=== PATIENT | male | born 1985 | race Two or more races ===

== ENCOUNTER 2017-01-26 20:25 | Emergency (ER) | payer MEDICAID ==
[~2017-01-26] VITALS: Ht 190.5 cm; Wt 90.7 kg
[~2017-01-26 20:25] MED LIST: DIVA500T53; OXYCARBAZEPINE; QUET400T; SERT-135; TEMA30CA5; TOPI100T29; TRAZEDONE
[2017-01-27] MEDS ORDERED: ACETAMINOPHEN 325 MG TAB PO ONE ×2 (00:44→01:15)
[2017-01-27 03:05] VITALS: BP 118/61
== END 2017-01-27 03:08 | disposition home or self-care (01) ==
LOC: ER 20:25
DX: S00.83XA Contusion of other part of head, initial encounter (principal); Z88.0 Allergy status to penicillin; Z86.73 Personal history of transient ischemic attack (TIA), and cerebral infarction without residual deficits; Y04.2XXA Assault by strike against or bumped into by another person, initial encounter; Y93.89 Activity, other specified; Y99.8 Other external cause status; Y92.89 Other specified places as the place of occurrence of the external cause
CPT/HCPCS: 70450; 70486; 72125

== ENCOUNTER 2017-08-20 16:30 | Emergency (ER) | payer MEDICAID ==
[~2017-08-20] VITALS: Ht 188 cm; Wt 117.9 kg
[2017-08-20 16:35] VITALS: BP 124/72
[2017-08-20] MEDS ORDERED: cefTRIAXone SOD 1,000 MG VL IM ONE (19:15)
[2017-08-20] MEDS ORDERED: LIDOCAINE 1% (LOCAL ANESTH.) PF 5ml SDV IJ ONE (19:15)
[2017-08-20] MEDS ORDERED: LIDOCAINE 1% HCL (LOCAL ANESTH.) INJ 20ML MDV ONE (19:23)
[2017-08-20] MEDS ORDERED: TETANUS-DIPTH-ACEL PERTUSSIS 0.5ML SYRG IM ONE (19:30)
== END 2017-08-20 20:09 | disposition home or self-care (01) ==
LOC: ER 16:30
DX: S01.81XA Laceration without foreign body of other part of head, initial encounter (principal); S01.01XA Laceration without foreign body of scalp, initial encounter; Z88.0 Allergy status to penicillin; Z86.73 Personal history of transient ischemic attack (TIA), and cerebral infarction without residual deficits; W45.8XXA Other foreign body or object entering through skin, initial encounter; Y93.89 Activity, other specified; Y92.89 Other specified places as the place of occurrence of the external cause; Y99.8 Other external cause status
CPT/HCPCS: 12001; 12013; 90471; 90715; 96372; 99284; J0696; J2001

== ENCOUNTER 2018-01-04 15:00 | Emergency (ER) | payer MEDICARE, MEDICAID ==
[~2018-01-04] VITALS: Ht 188 cm; Wt 108.9 kg
[2018-01-04 15:14] VITALS: BP 119/78
== END 2018-01-04 17:48 | disposition home or self-care (01) ==
LOC: ER 15:05
DX: R51 Headache (principal); Z88.0 Allergy status to penicillin; Z79.899 Other long term (current) drug therapy
CPT/HCPCS: 70450

== ENCOUNTER 2019-03-01 22:19 | Emergency (ER) | payer MEDICARE, MEDICAID ==
[~2019-03-01] VITALS: Ht 188 cm; Wt 113.4 kg
[~2019-03-01 22:19] MED LIST changes: -SERT-135; +SERT100T
[2019-03-01 22:30] VITALS: BP 134/76
[2019-03-01 23:57] LABS: Basophils # (auto) 0 uL; Basophils % (auto) 0.4 % (0.0-2.0); Eosinophils # (auto) 0 uL; Eosinophils % (auto) 0.2 % (0.0-7.0); Hematocrit 42.2 % (41.0-53.0); Hemoglobin 14.7 g/dL (13.5-17.5); Lymphocytes # (auto) 0.6 uL; Lymphocytes % (auto) 6.7 % (10.0-50.0); Mean Corpuscular Hemoglobin 32.3 pg (28.0-32.0); Mean Corpuscular Hgb Conc. 34.8 g/dL (32.0-36.0); Mean Corpuscular Volume 92.8 fL (80.0-100.0); Monocytes # (auto) 0.3 uL; Monocytes % (auto) 3.4 % (0.0-12.0); Neutrophils # (auto) 7.4 uL; Neutrophils % (auto) 89.3 % (37.0-80.0); Platelet Count (auto) 145 10^3/uL (140-450); Red Blood Cells 4.54 10^6/uL (4.5-5.90); Red Cell Distribution Width 14.5 % (11.8-14.3); White Blood Cell 8.3 10^3/uL (4.4-10.8)
[2019-03-02 00:18] LABS: Albumin 4.6 g/dL (3.4-5.0); BUN/Creatinine Ratio 13.9; Calcium 8.9 mg/dL (8.5-10.1); Potassium 3.2 mmol/L (3.5-5.1)
[2019-03-02 00:21] LABS: Bilirubin, Total 0.8 mg/dL (0.2-1.0); Total Protein 8.4 g/dL (6.4-8.2)
== END 2019-03-02 00:19 | disposition left against medical advice (07) ==
LOC: EDBD 22:19 → ER 22:23
DX: R19.7 Diarrhea, unspecified (principal); Z53.21 Procedure and treatment not carried out due to patient leaving prior to being seen by health care provider
CPT/HCPCS: 36415; 80053; 82150; 83690; 85025

== ENCOUNTER 2019-03-03 10:41 | Emergency (ER) | payer MEDICARE, MEDICAID ==
[~2019-03-03] VITALS: Ht 188 cm; Wt 90.7 kg
[2019-03-03 11:09] VITALS: BP 129/89
[2019-03-03] MEDS ORDERED: SODIUM CHLORIDE 0.9% 1,000 ML IV ONE (11:39)
[2019-03-03] MEDS ORDERED: CARISOPRODOL 350 MG TAB PO ONE (11:45)
[2019-03-03] MEDS ORDERED: KETOROLAC TROMETH 30 MG/ML 1ML VIAL IV ONE (11:45)
[2019-03-03 13:23] LABS: Basophils # (auto) 0 uL; Basophils % (auto) 0.2 % (0.0-2.0); Eosinophils # (auto) 0 uL; Hematocrit 40.7 % (41.0-53.0); Hemoglobin 13.9 g/dL (13.5-17.5); Lymphocytes # (auto) 0.8 uL; Lymphocytes % (auto) 10.8 % (10.0-50.0); Mean Corpuscular Hemoglobin 32.1 pg (28.0-32.0); Mean Corpuscular Hgb Conc. 34.1 g/dL (32.0-36.0); Mean Corpuscular Volume 94.1 fL (80.0-100.0); Monocytes # (auto) 0.6 uL; Monocytes % (auto) 8.3 % (0.0-12.0); Neutrophils # (auto) 5.7 uL; Neutrophils % (auto) 80.7 % (37.0-80.0); Platelet Count (auto) 146 10^3/uL (140-450); Red Blood Cells 4.32 10^6/uL (4.5-5.90); Red Cell Distribution Width 14.4 % (11.8-14.3)
[2019-03-03 13:33] LABS: Calcium 8.7 mg/dL (8.5-10.1); Magnesium 2.5 mg/dL (1.6-2.6)
[2019-03-03 13:36] LABS: BUN/Creatinine Ratio 15.3; Bilirubin, Total 0.4 mg/dL (0.2-1.0); Total Protein 7.6 g/dL (6.4-8.2)
== END 2019-03-03 14:17 | disposition home or self-care (01) ==
LOC: ER 10:41
DX: R25.2 Cramp and spasm (principal); F17.210 Nicotine dependence, cigarettes, uncomplicated; F12.10 Cannabis abuse, uncomplicated; Z88.0 Allergy status to penicillin; Z79.899 Other long term (current) drug therapy
CPT/HCPCS: 36415; 80053; 83735; 85025; 96374; 99283; J1885; J7030

== ENCOUNTER 2020-09-28 02:44 | Emergency (ER) | payer MEDICARE, MEDICAID ==
[~2020-09-28] VITALS: Ht 180.3 cm; Wt 79.4 kg
[~2020-09-28 02:44] MED LIST changes: +DIVA500T2; -DIVA500T53
[2020-09-28 03:04] VITALS: BP 129/70
== END 2020-09-28 06:05 | disposition left against medical advice (07) ==
LOC: EDBD 02:44 → ER 02:47
DX: T67.5XXA Heat exhaustion, unspecified, initial encounter (principal); Z53.21 Procedure and treatment not carried out due to patient leaving prior to being seen by health care provider; X30.XXXA Exposure to excessive natural heat, initial encounter; Y93.89 Activity, other specified; Y92.89 Other specified places as the place of occurrence of the external cause; Y99.8 Other external cause status

== ENCOUNTER 2021-05-14 21:23 | Inpatient (IN) | payer MEDICARE, MEDICAID ==
[~2021-05-14] VITALS: Ht 188 cm; Wt 64.0 kg
[2021-05-14] MEDS ORDERED: IOHEXOL 300 MG/ML 100ML BOTTLE IJ ONE (23:57)
[2021-05-15] VITALS (7 sets, daily range): BP systolic 88–102; BP diastolic 51–67
[2021-05-15] MEDS ORDERED: HYDROmorphone HCL 2 MG/ML VL IV ONE
[2021-05-15 03:33] LABS: Albumin 2.5 g/dL (3.4-5.0); BUN/Creatinine Ratio 15.4; Calcium 8.3 mg/dL (8.5-10.1); Potassium 3.9 mmol/L (3.5-5.1)
[2021-05-15 03:36] LABS: Bilirubin, Total 0.4 mg/dL (0.2-1.0); Total Protein 5.8 g/dL (6.4-8.2)
[2021-05-15 03:42] LABS: Basophils # (auto) 0 10 ^3/uL (0-0.2); Basophils % (auto) 0.3 % (0.0-2.0); Eosinophils # (auto) 0 10 ^3/uL (0-0.8); Eosinophils % (auto) 0.2 % (0.0-7.0); Hematocrit 34.5 % (41.0-53.0); Hemoglobin 11.6 g/dL (13.5-17.5); Lymphocytes # (auto) 2.2 10 ^3/uL (0.4-5.4); Lymphocytes % (auto) 22.9 % (10.0-50.0); Mean Corpuscular Hemoglobin 31.6 pg (28.0-32.0); Mean Corpuscular Hgb Conc. 33.6 g/dL (32.0-36.0); Monocytes # (auto) 0.6 10 ^3/uL (0-1.3); Monocytes % (auto) 6.3 % (0.0-12.0); Neutrophils # (auto) 6.9 10 ^3/uL (1.6-8.6); Neutrophils % (auto) 70.3 % (37.0-80.0); Red Blood Cells 3.67 10^6/uL (4.5-5.90); Red Cell Distribution Width 15.1 % (11.8-14.3); White Blood Cell 9.8 10^3/uL (4.4-10.8)
[2021-05-15] MEDS ORDERED: CLINDAMYCIN 300MG IV 50 ML IV ONE (03:45)
[2021-05-15] MEDS ORDERED: HYDROmorphone HCL 2 MG/ML VL IV PRN (03:45)
[2021-05-15] MEDS ORDERED: ACETAMINOPHEN 325 MG TAB PO PRN ×2 (03:45→06:00)
[2021-05-15] MEDS ORDERED: HYDROcodone-ACET 5/325MG TAB PO PRN (03:45)
[2021-05-15] MEDS: SODIUM CHLORIDE 0.9% 1,000 ML IV SCH ×2 (03:45→04:49)
[2021-05-15] MEDS ORDERED: DOCUSATE SOD 100 MG CAP PO PRN ×2 (03:45→06:00)
[2021-05-15] MEDS ORDERED: ONDANSETRON HCL 4 MG/2 ML VIAL IV PRN (03:45)
[2021-05-15] MEDS ORDERED: MORPHINE SULFATE INJECTION 2 MG/ML SYRG IV PRN ×2 (04:45→06:00)
[2021-05-15] MEDS ORDERED: NITROGLYCERIN 0.4 MG SL TAB SL PRN ×2 (04:45→06:00)
[2021-05-15] MEDS ORDERED: SODIUM CHLORIDE 0.9% 1,000 ML IV SCH (06:00)
[2021-05-15] MEDS ORDERED: CLINDAMYCIN 600MG IV 50 ML IV SCH (06:00)
[2021-05-15] MEDS: HYDROmorphone HCL 2 MG/ML VL IV PRN ×4 (06:30→21:42)
[2021-05-15] MEDS: ONDANSETRON HCL 4 MG/2 ML VIAL IV PRN ×3 (06:31→17:25)
[2021-05-15] MEDS: CLINDAMYCIN 600MG IV 50 ML IV SCH ×3 (06:32→22:18)
[2021-05-15] MEDS ORDERED: ALBUMIN 25% 50 ML IV ONE (08:00)
[2021-05-15] MEDS: ACCU-CHEK COMFORT CURVE STRIP VI SCH ×4 (08:00→23:39)
[2021-05-15] MEDS ORDERED: DEXTROSE (50%) 50ML SYRG IV PRN (08:00)
[2021-05-15] MEDS ORDERED: InsuLIN REG 1unit/0.01ml Soln (100units/ml) SC SCH (08:00)
[2021-05-15] MEDS ORDERED: FAMOTIDINE (10MG/ML) 2ML VL IV SCH (10:00)
[2021-05-15] MEDS ORDERED: ENOXAPARIN SOD 40 MG/0.4 ML SYRINGE SC SCH (10:00)
[2021-05-15] MEDS: FAMOTIDINE (10MG/ML) 2ML VL IV SCH (10:00)
[2021-05-15] MEDS ORDERED: ASCORBIC ACID 500 MG TAB PO SCH (10:00)
[2021-05-15] MEDS ORDERED: ZINC SULFATE 220mg CAP or TAB PO SCH (10:00)
[2021-05-15] MEDS ORDERED: TOPIRAMATE 100 MG TAB PO SCH (10:00)
[2021-05-15] MEDS ORDERED: MULTIPLE VITAMIN TAB PO SCH (10:00)
[2021-05-15] MEDS ORDERED: INSULIN LANTUS (GLARGINE) 1 /0.01ml (100units/ml) SC ONE (11:15)
[2021-05-15] MEDS: ZINC SULFATE 220mg CAP or TAB PO SCH (11:15)
[2021-05-15] MEDS: MULTIPLE VITAMIN TAB PO SCH (11:15)
[2021-05-15] MEDS: ENOXAPARIN SOD 40 MG/0.4 ML SYRINGE SC SCH (11:16)
[2021-05-15] MEDS: ASCORBIC ACID 500 MG TAB PO SCH ×2 (11:16→22:19)
[2021-05-15] MEDS: TOPIRAMATE 100 MG TAB PO SCH ×2 (11:17→22:19)
[2021-05-15] MEDS: InsuLIN REG 1unit/0.01ml Soln (100units/ml) SC SCH ×3 (11:30→23:28)
[2021-05-15] MEDS: INSULIN LANTUS (GLARGINE) 1 /0.01ml (100units/ml) SC SCH (23:26)
[2021-05-16 05:00] VITALS: BP 95/59
[2021-05-16] MEDS: HYDROcodone-ACET 5/325MG TAB PO PRN ×4 (05:09→21:38)
[2021-05-16] MEDS: ONDANSETRON HCL 4 MG/2 ML VIAL IV PRN ×4 (05:10→19:10)
[2021-05-16 05:30] LABS: Basophils # (auto) 0 10 ^3/uL (0-0.2); Basophils % (auto) 0.3 % (0.0-2.0); Eosinophils # (auto) 0 10 ^3/uL (0-0.8); Eosinophils % (auto) 0.3 % (0.0-7.0); Hematocrit 34.7 % (41.0-53.0); Hemoglobin 11.9 g/dL (13.5-17.5); Lymphocytes # (auto) 2.6 10 ^3/uL (0.4-5.4); Lymphocytes % (auto) 32.5 % (10.0-50.0); Mean Corpuscular Hemoglobin 32.1 pg (28.0-32.0); Mean Corpuscular Hgb Conc. 34.3 g/dL (32.0-36.0); Mean Corpuscular Volume 93.5 fL (80.0-100.0); Monocytes # (auto) 0.5 10 ^3/uL (0-1.3); Monocytes % (auto) 6.8 % (0.0-12.0); Neutrophils # (auto) 4.8 10 ^3/uL (1.6-8.6); Neutrophils % (auto) 60.1 % (37.0-80.0); Red Blood Cells 3.72 10^6/uL (4.5-5.90); Red Cell Distribution Width 15.1 % (11.8-14.3)
[2021-05-16 05:56] LABS: Potassium 3.5 mmol/L (3.5-5.1)
[2021-05-16 06:04] LABS: BUN/Creatinine Ratio 19.4; Calcium 8.6 mg/dL (8.5-10.1); Magnesium 2.4 mg/dL (1.6-2.6)
[2021-05-16] MEDS: CLINDAMYCIN 600MG IV 50 ML IV SCH ×3 (06:12→21:38)
[2021-05-16 06:13] LABS: INR 1.03 (0.9-1.15); Partial Thromboplastin Time 32.5 sec (23.6-33.0)
[2021-05-16] MEDS: InsuLIN REG 1unit/0.01ml Soln (100units/ml) SC SCH ×3 (07:00→17:00)
[2021-05-16] MEDS: ACCU-CHEK COMFORT CURVE STRIP VI SCH ×3 (07:01→17:00)
[2021-05-16] MEDS: INSULIN LANTUS (GLARGINE) 1 /0.01ml (100units/ml) SC SCH (07:06)
[2021-05-16 07:33] LABS: Urine WBC None Seen /hpf (0 - 3)
[2021-05-16 08:11] LABS: Urine Amorphous Crystal FEW /hpf (None Seen); Urine Bacteria FEW /hpf (None Seen); Urine Blood Negative /uL (Negative); Urine Mucus FEW (None Seen); Urine Specific Gravity 1.015 (1.001-1.035)
[2021-05-16 09:00] VITALS: BP 107/65
[2021-05-16] MEDS: MULTIPLE VITAMIN TAB PO SCH (10:00)
[2021-05-16] MEDS: FAMOTIDINE (10MG/ML) 2ML VL IV SCH (10:00)
[2021-05-16] MEDS: ASCORBIC ACID 500 MG TAB PO SCH ×2 (10:00→21:37)
[2021-05-16] MEDS: ZINC SULFATE 220mg CAP or TAB PO SCH (10:00)
[2021-05-16] MEDS: TOPIRAMATE 100 MG TAB PO SCH ×2 (10:00→21:37)
[2021-05-16] MEDS: ENOXAPARIN SOD 40 MG/0.4 ML SYRINGE SC SCH (10:00)
[2021-05-16] MEDS: HYDROmorphone HCL 2 MG/ML VL IV PRN ×3 (10:40→19:10)
[2021-05-16] MEDS ORDERED: BUPIVACAINE W/ EPINEPH 0.5% MPF 30ML VIAL IJ ONE (12:00)
[2021-05-16] MEDS ORDERED: LIDOCAINE 1% HCL (LOCAL ANESTH.) INJ 20ML MDV ID ONE (12:00)
[2021-05-16] MEDS ORDERED: BUPIVACAINE 0.5% INJ 50ML VIAL IJ ONE (12:30)
[2021-05-17] MEDS: InsuLIN REG 1unit/0.01ml Soln (100units/ml) SC SCH ×4 (00:55→17:05)
[2021-05-17] MEDS: INSULIN LANTUS (GLARGINE) 1 /0.01ml (100units/ml) SC SCH ×2 (00:57→07:35)
[2021-05-17] MEDS: ACCU-CHEK COMFORT CURVE STRIP VI SCH ×4 (01:03→17:03)
[2021-05-17] MEDS: CLINDAMYCIN 600MG IV 50 ML IV SCH ×2 (06:00→13:30)
[2021-05-17 08:00] VITALS: BP 89/48
[2021-05-17] MEDS: FAMOTIDINE (10MG/ML) 2ML VL IV SCH (10:47)
[2021-05-17] MEDS: TOPIRAMATE 100 MG TAB PO SCH (10:48)
[2021-05-17] MEDS: MULTIPLE VITAMIN TAB PO SCH (10:48)
[2021-05-17] MEDS: ENOXAPARIN SOD 40 MG/0.4 ML SYRINGE SC SCH (10:48)
[2021-05-17] MEDS: ASCORBIC ACID 500 MG TAB PO SCH (10:48)
[2021-05-17] MEDS: ZINC SULFATE 220mg CAP or TAB PO SCH (10:48)
[2021-05-17 13:00] VITALS: BP 89/48
[2021-05-17] MEDS ORDERED: BLOO1KIT60 XX (14:11)
[2021-05-17] MEDS ORDERED: INSLANTI SC (14:11)
[2021-05-17] MEDS ORDERED: CLIN300C2 PO (14:11)
[2021-05-17] MEDS ORDERED: INSU1MIS44 XX (14:11)
[2021-05-17] MEDS ORDERED: GLUC-149 VI (14:11)
[2021-05-17 16:50] VITALS: BP 99/59
== END 2021-05-17 18:40 | disposition home health service (06) | DRG 638 ==
LOC: ER 21:23 → OVERFLOW 05-15 04:39 → ER 05-15 05:14 → WEST WING 05-15 05:18
PROVIDERS: ADMIT Nurse Practitioner Family; ATTEND Internal Medicine Geriatric Medicine
PROC: 0H98XZZ Drainage of Buttock Skin, External Approach (ICD-10-PCS; principal; 2021-05-16)
DX: E11.65 Type 2 diabetes mellitus with hyperglycemia (principal); L02.31 Cutaneous abscess of buttock; G82.20 Paraplegia, unspecified; K86.2 Cyst of pancreas; G81.91 Hemiplegia, unspecified affecting right dominant side; E44.1 Mild protein-calorie malnutrition; E88.09 Other disorders of plasma-protein metabolism, not elsewhere classified; Z20.822 Contact with and (suspected) exposure to COVID-19; F17.210 Nicotine dependence, cigarettes, uncomplicated; L89.90 Pressure ulcer of unspecified site, unspecified stage; G40.909 Epilepsy, unspecified, not intractable, without status epilepticus; Z99.3 Dependence on wheelchair; Z86.73 Personal history of transient ischemic attack (TIA), and cerebral infarction without residual deficits; Z88.0 Allergy status to penicillin; Z87.19 Personal history of other diseases of the digestive system
CPT/HCPCS: 36415; 80048; 80053; 80061; 81001; 82962; 83036; 83735; 85025; 85610; 85730; 87081; 87086; 87426; 96365; 96375; G0378; J1815; J2001; J2405; J3490

== ENCOUNTER 2021-05-30 19:55 | Emergency (ER) | payer MEDICARE, MEDICAID ==
[~2021-05-30] VITALS: Ht 167.6 cm; Wt 81.6 kg
[~2021-05-30 19:55] MED LIST changes: +BLOO1KIT60 XX; +CLIN300C2 PO; +GLUC-149 VI; +INSLANTI SC; +INSU1MIS44 XX
[2021-05-30] MEDS ORDERED: ACETAMINOPHEN 325 MG TAB PO ONE (20:30)
[2021-05-30] MEDS ORDERED: IOHEXOL 300 MG/ML 100ML BOTTLE IJ ONE (20:53)
[2021-05-30 21:13] LABS: Basophils # (auto) 0 10 ^3/uL (0-0.2); Basophils % (auto) 0.3 % (0.0-2.0); Eosinophils # (auto) 0 10 ^3/uL (0-0.8); Eosinophils % (auto) 0.2 % (0.0-7.0); Hematocrit 39.5 % (41.0-53.0); Hemoglobin 13.3 g/dL (13.5-17.5); Lymphocytes # (auto) 1.7 10 ^3/uL (0.4-5.4); Lymphocytes % (auto) 12.6 % (10.0-50.0); Mean Corpuscular Hemoglobin 31.8 pg (28.0-32.0); Mean Corpuscular Hgb Conc. 33.8 g/dL (32.0-36.0); Mean Corpuscular Volume 94.3 fL (80.0-100.0); Monocytes # (auto) 0.7 10 ^3/uL (0-1.3); Monocytes % (auto) 5.2 % (0.0-12.0); Neutrophils # (auto) 11.3 10 ^3/uL (1.6-8.6); Neutrophils % (auto) 81.7 % (37.0-80.0); Red Blood Cells 4.19 10^6/uL (4.5-5.90); Red Cell Distribution Width 14.8 % (11.8-14.3); White Blood Cell 13.8 10^3/uL (4.4-10.8)
[2021-05-30] MEDS: HYDROmorphone HCL 2 MG/ML VL IV ONE ×2 (21:15→21:49)
[2021-05-30 21:29] LABS: Albumin 3.3 g/dL (3.4-5.0); BUN/Creatinine Ratio 15.8; Calcium 8.6 mg/dL (8.5-10.1); INR 1.02 (0.9-1.15)
[2021-05-30 21:31] LABS: Bilirubin, Total 0.4 mg/dL (0.2-1.0); Total Protein 6.7 g/dL (6.4-8.2)
[2021-05-31] MEDS ORDERED: ALUM & MAG HYDROX-SIMETH LIQ(MAALOX) 30 ML PO ONE (00:30)
[2021-05-31] MEDS ORDERED: ONDANSETRON HCL 4 MG/2 ML VIAL IV ONE (01:30)
[2021-05-31] MEDS ORDERED: HYDROmorphone HCL 2 MG/ML VL IV ONE (01:30)
[2021-05-31 03:29] LABS: Urine Blood Negative /uL (Negative)
[2021-05-31 03:30] LABS: Urine Bacteria NONE SEEN /hpf (None Seen); Urine Specific Gravity > 1.050 (1.001-1.035); Urine WBC 1 /hpf (0 - 3)
[2021-05-31] MEDS ORDERED: SUCR1TAB22 OR (03:57)
[2021-05-31] MEDS ORDERED: FAMO20TA10 PO (03:57)
[2021-05-31 04:12] VITALS: BP 127/94
== END 2021-05-31 04:17 | disposition home or self-care (01) ==
LOC: EDBD 19:55 → ER 19:59
DX: R10.9 Unspecified abdominal pain (principal); F17.210 Nicotine dependence, cigarettes, uncomplicated; Z86.73 Personal history of transient ischemic attack (TIA), and cerebral infarction without residual deficits; Z79.2 Long term (current) use of antibiotics; Z79.899 Other long term (current) drug therapy
CPT/HCPCS: 36415; 74177; 80053; 81001; 85025; 85610; 96374; 96375; 96376; 99285; J1170; J2405; Q9967

== ENCOUNTER 2021-10-07 20:46 | Emergency (ER) | payer MEDICARE, MEDICAID ==
[~2021-10-07 20:46] MED LIST changes: +FAMO20TA10 PO; +SUCR1TAB22 OR
== END 2021-10-07 23:00 | disposition left against medical advice (07) ==
LOC: ER 20:46
DX: R10.2 Pelvic and perineal pain (principal); Z53.21 Procedure and treatment not carried out due to patient leaving prior to being seen by health care provider

== ENCOUNTER 2021-10-08 15:21 | Inpatient (IN) | payer MEDICARE, MEDICAID ==
[~2021-10-08] VITALS: Ht 167.6 cm; Wt 63.5 kg
[2021-10-08] MEDS ORDERED: MORPHINE SULFATE 4 MG/ML SYR/VIAL IV ONE (15:45)
[2021-10-08] MEDS ORDERED: PROCHLORPERAZINE EDISYLATE 5 MG/ML 2ML VIAL IV ONE (15:45)
[2021-10-08] MEDS ORDERED: PANTOPRAZOLE 40 MG/10 ML VIAL INJ IV ONE (15:45)
[2021-10-08] MEDS ORDERED: SODIUM CHLORIDE 0.9% 1,000 ML IVB ONE (15:45)
[2021-10-08 16:41] LABS: Basophils # (auto) 0 10 ^3/uL (0-0.2); Basophils % (auto) 0.2 % (0.0-2.0); Eosinophils # (auto) 0 10 ^3/uL (0-0.8); Hemoglobin 11.2 g/dL (13.5-17.5); Monocytes # (auto) 1.4 10 ^3/uL (0-1.3)
[2021-10-08 16:44] LABS: Eosinophils % (auto) 0.1 % (0.0-7.0); Hematocrit 34.5 % (41.0-53.0); Lymphocytes # (auto) 1.9 10 ^3/uL (0.4-5.4); Lymphocytes % (auto) 14.4 % (10.0-50.0); Mean Corpuscular Hemoglobin 27.6 pg (28.0-32.0); Mean Corpuscular Hgb Conc. 32.5 g/dL (32.0-36.0); Monocytes % (auto) 11.1 % (0.0-12.0); Neutrophils # (auto) 9.6 10 ^3/uL (1.6-8.6); Neutrophils % (auto) 74.2 % (37.0-80.0); Nucleated Red Blood Cells % 0.1 %; Red Blood Cells 4.06 10^6/uL (4.5-5.90); Red Cell Distribution Width 16.1 % (11.8-14.3); White Blood Cell 12.9 10^3/uL (4.4-10.8)
[2021-10-08 16:52] LABS: Albumin 2.3 g/dL (3.4-5.0); Calcium 8.7 mg/dL (8.5-10.1); Potassium 3.7 mmol/L (3.5-5.1)
[2021-10-08 17:05] LABS: Bilirubin, Total 0.4 mg/dL (0.2-1.0); Total Protein 7.3 g/dL (6.4-8.2)
[2021-10-09] MEDS ORDERED: MORPHINE SULFATE INJ 2 MG/ml SYRG IV PRN ×2 (02:15→03:30)
[2021-10-09] MEDS ORDERED: ONDANSETRON HCL 4 MG/2 ML VIAL IV PRN (02:15)
[2021-10-09] MEDS ORDERED: DEXTROSE (50%) 50ML SYRG IV PRN (02:15)
[2021-10-09] MEDS ORDERED: SODIUM CHLORIDE 0.9% 1,000 ML IV SCH (02:15)
[2021-10-09] MEDS ORDERED: ACETAMINOPHEN 325 MG TAB PO PRN (02:15)
[2021-10-09] MEDS ORDERED: NITROGLYCERIN 0.4 MG SL TAB SL PRN (03:30)
[2021-10-09] MEDS: metroNIDAZOLE 500MG/100ML 100 ML IV SCH ×3 (05:30→19:46)
[2021-10-09] MEDS: InsuLIN REG 1unit/0.01ml Soln (100units/ml) SC SCH ×4 (07:00→22:00)
[2021-10-09] MEDS: ACCU-CHEK COMFORT CURVE STRIP VI SCH ×4 (07:29→22:00)
[2021-10-09 08:03] LABS: Basophils # (auto) 0 10 ^3/uL (0-0.2); Eosinophils # (auto) 0 10 ^3/uL (0-0.8); Eosinophils % (auto) 0.1 % (0.0-7.0); Hemoglobin 10.2 g/dL (13.5-17.5); Monocytes # (auto) 1.4 10 ^3/uL (0-1.3)
[2021-10-09 08:05] LABS: Basophils % (auto) 0.2 % (0.0-2.0); Hematocrit 31.4 % (41.0-53.0); Lymphocytes # (auto) 1.8 10 ^3/uL (0.4-5.4); Lymphocytes % (auto) 13.3 % (10.0-50.0); Mean Corpuscular Hemoglobin 27.6 pg (28.0-32.0); Mean Corpuscular Hgb Conc. 32.4 g/dL (32.0-36.0); Mean Corpuscular Volume 85.1 fL (80.0-100.0); Monocytes % (auto) 10.3 % (0.0-12.0); Neutrophils # (auto) 10.6 10 ^3/uL (1.6-8.6); Neutrophils % (auto) 76.1 % (37.0-80.0); Red Blood Cells 3.69 10^6/uL (4.5-5.90); Red Cell Distribution Width 16.2 % (11.8-14.3); White Blood Cell 13.9 10^3/uL (4.4-10.8)
[2021-10-09 08:25] LABS: Potassium 3.7 mmol/L (3.5-5.1)
[2021-10-09 08:30] LABS: Bilirubin, Total 0.5 mg/dL (0.2-1.0); Calcium 8.3 mg/dL (8.5-10.1); Total Protein 6.4 g/dL (6.4-8.2)
[2021-10-09] MEDS: HYDROcodone-ACET 5/325MG TAB PO PRN ×2 (09:10→18:39)
[2021-10-09] MEDS: PANTOPRAZOLE 40 MG/10 ML VIAL INJ IV SCH (09:45)
[2021-10-09] MEDS: TOPIRAMATE 100 MG TAB PO SCH ×2 (09:45→23:35)
[2021-10-09] MEDS: HEPARIN SODIUM (PORCINE) 5000 UNITS/ML 1ML VIAL SC SCH ×2 (10:03→23:35)
[2021-10-09 10:15] LABS: Urine Bacteria NONE SEEN /hpf (None Seen); Urine Blood Negative /uL (Negative); Urine Mucus FEW (None Seen); Urine WBC 2 /hpf (0 - 3)
[2021-10-09] MEDS ORDERED: SODIUM CHLORIDE 0.9% 500 ML IV ONE (12:30)
[2021-10-09] MEDS ORDERED: IOHEXOL 300 MG/ML 100ML BOTTLE IJ ONE (13:50)
[2021-10-09] MEDS: D5W/SOD CHLO 0.9% 1,000 ML IV SCH (14:52)
[2021-10-09] MEDS ORDERED: PANT40T PO (23:02)
[2021-10-10] MEDS: metroNIDAZOLE 500MG/100ML 100 ML IV SCH ×2 (03:03→11:55)
[2021-10-10] MEDS: HYDROcodone-ACET 5/325MG TAB PO PRN (03:33)
[2021-10-10 05:00] VITALS: BP 89/54
[2021-10-10] MEDS: D5W/SOD CHLO 0.9% 1,000 ML IV SCH (05:01)
[2021-10-10 06:32] LABS: Basophils # (auto) 0 10 ^3/uL (0-0.2); Basophils % (auto) 0.2 % (0.0-2.0); Eosinophils # (auto) 0 10 ^3/uL (0-0.8); Eosinophils % (auto) 0.5 % (0.0-7.0); Hematocrit 30.4 % (41.0-53.0); Hemoglobin 10.1 g/dL (13.5-17.5); Lymphocytes # (auto) 1.9 10 ^3/uL (0.4-5.4); Lymphocytes % (auto) 20.2 % (10.0-50.0); Mean Corpuscular Hemoglobin 28.3 pg (28.0-32.0); Mean Corpuscular Hgb Conc. 33.1 g/dL (32.0-36.0); Mean Corpuscular Volume 85.5 fL (80.0-100.0); Monocytes # (auto) 0.9 10 ^3/uL (0-1.3); Monocytes % (auto) 9.3 % (0.0-12.0); Neutrophils # (auto) 6.5 10 ^3/uL (1.6-8.6); Neutrophils % (auto) 69.8 % (37.0-80.0); Nucleated Red Blood Cells % 0.1 %; Red Blood Cells 3.55 10^6/uL (4.5-5.90); Red Cell Distribution Width 15.9 % (11.8-14.3); White Blood Cell 9.3 10^3/uL (4.4-10.8)
[2021-10-10 06:48] LABS: Albumin 1.9 g/dL (3.4-5.0); Calcium 7.8 mg/dL (8.5-10.1); Potassium 3.6 mmol/L (3.5-5.1)
[2021-10-10 06:53] LABS: Bilirubin, Total 0.4 mg/dL (0.2-1.0)
[2021-10-10] MEDS: ACCU-CHEK COMFORT CURVE STRIP VI SCH ×2 (07:00→11:57)
[2021-10-10] MEDS: InsuLIN REG 1unit/0.01ml Soln (100units/ml) SC SCH ×2 (07:00→11:30)
[2021-10-10] MEDS: PANTOPRAZOLE 40 MG/10 ML VIAL INJ IV SCH (09:28)
[2021-10-10] MEDS: TOPIRAMATE 100 MG TAB PO SCH (09:28)
[2021-10-10] MEDS: HEPARIN SODIUM (PORCINE) 5000 UNITS/ML 1ML VIAL SC SCH (09:29)
[2021-10-10] MEDS ORDERED: levoFLOXacin 500MG 100 ML IV SCH (11:00)
[2021-10-10 12:19] VITALS: BP 106/57
== END 2021-10-10 15:41 | disposition left against medical advice (07) | DRG 444 ==
LOC: EDBD 15:21 → ER 15:21 → EDUNIT# 15:21 → OVERFLOW 10-09 03:23 → EAST 10-09 22:07
PROVIDERS: ADMIT Nurse Practitioner Family; ATTEND Internal Medicine
DX: K80.10 Calculus of gallbladder with chronic cholecystitis without obstruction (principal); K65.1 Peritoneal abscess; E87.1 Hypo-osmolality and hyponatremia; D72.829 Elevated white blood cell count, unspecified; D75.839 Thrombocytosis, unspecified; E11.9 Type 2 diabetes mellitus without complications; E88.09 Other disorders of plasma-protein metabolism, not elsewhere classified; F17.210 Nicotine dependence, cigarettes, uncomplicated; G40.909 Epilepsy, unspecified, not intractable, without status epilepticus; Z53.29 Procedure and treatment not carried out because of patient's decision for other reasons; R16.0 Hepatomegaly, not elsewhere classified; Z20.822 Contact with and (suspected) exposure to COVID-19; Z88.0 Allergy status to penicillin; Z86.73 Personal history of transient ischemic attack (TIA), and cerebral infarction without residual deficits
CPT/HCPCS: 36415; 74177; 76705; 80053; 81001; 82150; 82962; 83690; 85025; 87081; 93005; 96361; 96374; 96375; C9113; G0378; J1956; J2405; J3490